=== PATIENT | male | born 1960 ===

== ENCOUNTER 2017-09-14 09:19 | Inpatient (IN) | payer OTHER ==
--- NOTE | 2017-09-13 20:47 | GHP ---
[f rep st] PREOP HISTORY AND PHYSICAL DATE OF ADMISSION: 09/14/2017 PROBLEM: Left hip arthritis. HISTORY OF PRESENT ILLNESS: The patient is a 56-year-old man admitted for a left hip Tripp hip resurfacing arthroplasty. I did his right BHR in August of 2011. He has had a very good result an d is very satisfied. His left hip has been painful since May of 2016. He is having daily pain and some night pain. He is using ibuprofen regularly. 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 The hip is very stiff after prolonged sitting. He is admitted for a left BH R. PAST MEDICAL HISTORY: Excellent general health. No history of heart disease, stents, DVT, hepatitis , sleep apnea or bleeding problems. CURRENT MEDICATIONS: Testosterone shot 1 time per week. ALLERGIES: Drug allergies: None. Metal allergies: None. Latex allergy: None. SOCIAL HISTORY: The patient is . He lives in [place], [place]. He does not smoke cigarettes . Occasionally drinks alcohol. He works in the construction business. He is . FAMILY HISTORY: Noncontributory. PHYSICAL EXAMINATION: VITAL SIGNS: Height 5 feet 10 inches. Weight 195 pounds. BMI 28. HEENT: E yes, conjunctivae and sclerae are clear. Pupils are round and reactive. Mouth: Good oral hygiene. No loose teeth. CHEST: Clear. HEART: Regular rhythm, no murmurs. EXTREMITIES: Pertinent findin gs are limited to his left hip. He has well-developed thigh and buttocks musculature. Full hip exte nsion and 90 degrees of flexion. External rotation 10 degrees. Internal rotation 0 degrees. Abduct ion 30 degrees. IMAGING: His films show severe degenerative arthritis of the left hip. His right BHR looks good. IMPRESSION ON ADMISSION: 1. Left hip advanced degenerative arthritis. He is prepared for a left hip Tripp hip resurfaci ng arthroplasty. 2. Six years status post right hip [place] hip resurfacing arthroplasty. The surgery has been described to him, including the risks, complications, expectations, and recovery time. I talked to him about the risk of femoral neck fracture, dislocation, sciatic nerve injury, a nd infection. We discussed extensively the risk of metal ions. He understands that he is relatively young for a hip arthroplasty and may require revision surgery in the future. All his questions have been answered, and he consents to surgery. /[id number]/MODL
[~2017-09-14 09:19] MED LIST: POVIDONE-IODINE 20 ML in SODIUM CL IRRIG SOLUTION 500 ML IRR ONE; ROPIVACAINE 0.2% 80 MG, EPINEPHrine 0.2 MG, KETOROLAC TROMETHAMINE 30 MG in SYRINGE 0 ML IU ONE; TRANEXAMIC ACID 1,900 MG in NS 100 ML IV ONE
[2017-09-14] MEDS ORDERED: FAMOTIDINE 20 MG TAB PO ONE (10:05)
[2017-09-14] MEDS ORDERED: ceFAZolin 2 GM/SWFI 2 GM/20 ML SYR IVP ONE (10:05)
[2017-09-14] MEDS ORDERED: GABAPENTIN 300 MG CAP PO ONE (10:05)
[2017-09-14] MEDS ORDERED: ceFAZolin 1 GM/5 ML SYR ONE (10:05)
[2017-09-14] MEDS ORDERED: ACETAMINOPHEN 325 MG TAB PO ONE (10:05)
[2017-09-14] MEDS ORDERED: DEXAMETHASONE 4 MG/ML VIAL IVP ONE (10:05)
[2017-09-14] MEDS ORDERED: LIDOCAINE 1% 2 ML INJ ID PRN (10:06)
[2017-09-14] MEDS ORDERED: LR 1,000 ML IV ONE (10:06)
--- NOTE | 2017-09-14 11:34 | PDHPUP ---
History & Physical Update H&P update statement: This history and physical update is based on an assessment of the patient which was completed after admission or registration (within 24 hours), but prior to the surgery/procedure. H&P update: H&P reviewed & patient examined, no change in patient's condition since H&P completed
[2017-09-14] MEDS ORDERED: BUPIVACAINE 0.5% 30 ML SDV ONE (12:37)
[2017-09-14] MEDS ORDERED: MIDAZOLAM 2 MG/2 ML VIAL ONE ×2 (12:39)
[2017-09-14] MEDS ORDERED: PROPOFOL/EMULSION 500 MG/50 ML BOTTLE IV ONE (12:41)
[2017-09-14] MEDS ORDERED: fentaNYL 100 MCG/2 ML INJ ONE (12:41)
--- NOTE | 2017-09-14 13:50 | PDANEPAE ---
ANE Past Medical History - Cardiovascular History Hx Hypertension: No Hx Arrhythmias: No Hx Chest Pain: No Hx Coronary Artery / Peripheral Vascular Disease: No Hx CHF / Valvular Disease: No Hx Palpitations: No - Pulmonary History Hx COPD: No Hx Asthma/Reactive Airway Disease: No Hx Recent Upper Respiratory Infection: No Hx Oxygen in Use at Home: No Hx Sleep Apnea: No Sleep Apnea Screening Result - Last Documented: Negative - Neurologic History Hx Cerebrovascular Accident: No Hx Seizures: No Hx Dementia: No - Endocrine History Hx Diabetes: No - Renal History Hx Renal Disorders: No - Liver History Hx Hepatic Disorders: No - Neurological & Psychiatric Hx Hx Neurological and Psychiatric Disorders: No - Cancer History Hx Cancer: No - Congenital Disorder History Hx Congenital Disorders: No - GI History Hx Gastrointestinal Disorders: No - Other Health History Other Health History: OA L hip - Chronic Pain History Chronic Pain: Yes (L hip) - Surgical History Prior Surgeries: R hip resurfacing 09-02-11 ANE Review of Systems Review of Systems: - Exercise capacity METS (RN): 6 METS ANE Patient History - Allergies Allergies/Adverse Reactions: No Known Allergies Allergy (Unverified 08/25/11 15:58) - Home Medications Home Medications: Ibuprofen [Motrin (*)] 200 mg PO DAILY PRN 09/06/17 [Last Taken 09/09/17] Testosterone IM [Testosterone 100mg/ml IM inj (*)] 0.8 ml IM TH 09/06/17 [Last Taken 09/10/17] - NPO status NPO Since - Liquids (Date): 09/14/17 NPO Since - Liquids (Time): 08:00 NPO Since - Solids (Date): 09/13/17 NPO Since - Solids (Time): 19:00 - Smoking Hx Smoking Status: Never smoked ANE Labs/Vital Signs - Vital Signs Blood Pressure: 131/87 Heart Rate: 73 Respiratory Rate: 14 O2 Sat (%): 96 Height: 177.8 cm Weight: 95.254 kg ANE Physical Exam - Airway Neck exam: FROM Mallampati Score: Class 1 Mouth exam: normal dental/mouth exam - Pulmonary Pulmonary: no respiratory distress - Cardiovascular Cardiovascular: regular rate and rhythym - ASA Status ASA Status: I ANE Anesthesia Plan Anesthesia Plan: spinal
[2017-09-14] MEDS ORDERED: PROPOFOL 200 MG/20 ML VIAL ONE (14:20)
[2017-09-14] MEDS ORDERED: ONDANSETRON DISINTEGRATING 4 MG TAB PO PRN (14:37)
[2017-09-14] MEDS ORDERED: MAGNESIUM HYDROXIDE 30 ML UDCUP PO PRN (14:37)
[2017-09-14] MEDS ORDERED: PROMETHAZINE HCL 25 MG SUPPR PR PRN (14:37)
[2017-09-14] MEDS ORDERED: DIPHENOXYLATE/ATROPINE LOMOTIL 1 TAB PO PRN (14:37)
[2017-09-14] MEDS ORDERED: NS 500 ML IV PRN (14:37)
[2017-09-14] MEDS ORDERED: LACTULOSE 20 GM/30 ML UDCUP PO PRN (14:37)
[2017-09-14] MEDS ORDERED: METOCLOPRAMIDE 10 MG/2 ML VIAL IVP PRN (14:37)
[2017-09-14] MEDS ORDERED: KETOROLAC 30 MG/1 ML SDV IVP PRN (14:37)
[2017-09-14] MEDS ORDERED: POLYETHYLENE GLYCOL 3350 17 GM PKT PO PRN (14:37)
[2017-09-14] MEDS ORDERED: PROMETHAZINE HCL 25 MG/ML INJ IVP PRN (14:37)
[2017-09-14] MEDS ORDERED: diphenhydrAMINE 25 MG CAP PO PRN (14:37)
[2017-09-14] MEDS ORDERED: TEMAZEPAM 15 MG CAP PO PRN (14:37)
[2017-09-14] MEDS ORDERED: ONDANSETRON 4 MG/2 ML VIAL IVP PRN ×2 (14:37→14:41)
[2017-09-14] MEDS ORDERED: BISACODYL 10 MG SUPP PR PRN (14:37)
[2017-09-14] MEDS ORDERED: traMADol 50 MG TAB PO PRN (14:37)
--- NOTE | 2017-09-14 14:40 | POSTANESTH ---
Post Anesthetic Evaluation Cardiovascular Status: Normal, Stable Respiratory Status: Normal, Stable Level of Consciousness/Mental Status: Can Participate in Eval Pain Control: Adequate, Prn Tx Ordered Nausea/Vomiting Control: Adequate, Prn Tx Ordered Complications Possibly Related to Anesthesia: None Noted
[2017-09-14] MEDS ORDERED: NALOXONE HCL 0.4 MG/ML INJ IVP PRN (14:41)
[2017-09-14] MEDS ORDERED: ALBUTEROL 3 ML DEYVIAL IH PRN (14:41)
[2017-09-14] MEDS ORDERED: fentaNYL 100 MCG/2 ML INJ IVP PRN (14:41)
[2017-09-14] MEDS ORDERED: LR 1,000 ML IV SCH (15:00)
[2017-09-14] MEDS: ACETAMINOPHEN 325 MG TAB PO SCH (17:40)
[2017-09-14] MEDS: oxyCODONE IR 5 MG TAB PO PRN ×2 (17:41→20:59)
--- NOTE | 2017-09-14 19:21 | GOP ---
[f rep st] OPERATIVE REPORT DATE OF OPERATION: 09/14/2017 SURGEON: Jersey Yuan MD PARLIAMENTARY ARCHIVIST: Kalin Washington [facility] Sean Mackay, LENA ANESTHESIA: Marcaine spinal and IV sedation, ANESTHESIOLOGIST: Allan Alatorre MD PREOPERATIVE DIAGNOSIS: Left hip degenerative arthritis. POSTOPERATIVE DIAGNOSIS: Left hip degenerative arthritis. PROCEDURE PERFORMED: Left hip Tripp hip resurfacing arthroplasty. FINDINGS: ESTIMATED BLOOD LOSS: 400 mL. I used the [place] hip resurfacing system. The acetabular component was 60 mm in diameter and pre ss-fit. The femoral head was 54 mm and cemented. He was awakened from anesthesia and rolled to the supine position on his [facility]. A long-leg compressive stocking was and SCD were applied to the operative leg. He wore a stocking and SCD on the opposite leg during the procedure. An abductio n pillow was placed between his knees. He was awakened from anesthesia, transferred to his [facility] and taken to PACU in satisfactory condition. There were no recognized intraoperative complica tions. The sponge and needle counts were correct on 2 occasions. Kalin Washington and Juan Mackay acted as surgical assistants. Their assistance was a medical necess ity for the safe completion of the procedure. DESCRIPTION OF PROCEDURE: The patient was given 2 g of IV Ancef within 60 minutes of surgery. He al so received tranexamic acid at a dose of 20 mg/kg. He was placed on the operating room table and giv en spinal anesthesia with Marcaine by Dr. Alatorre. He was then placed supine and given IV sedation. A Murillo catheter was not used. He wore a compressive stocking and SCD on the nonoperative leg. He was rolled to the right lateral decubitus position. An axillary roll was used, and all pressure poi nts were carefully padded. The position was secured with the pegboard table attachment. I was caref ul to lock the pelvis in a vertical position. His perineum was isolated with plastic adhesive drapes . The left hip and left lower extremity were prepped with ChloraPrep. They were draped free using s terile sheets, stockinette, and Ioban plastic drape. The World Health Organization time-out was performed to verify the correct patient identity and the c orrect surgical side and site. The [place] time-out was also performed. I made a 7-inch straight oblique posterolateral hip skin incision. The subcutaneous tissues were sha rply divided, and hemostasis was obtained using electrocautery. The fascia toñito was identified and s plit along the axis of its fibers. I curved posteriorly and proximally, and split the fascia of glut eus rodriguez and bluntly split the muscle fibers in line with their orientation. His sciatic nerve wa s identified and protected throughout the procedure. The Charnley self-retaining retractor was inser sammie. The external rotators and the posterior hip capsule were divided as separate layers at the base of the femoral neck, tagged, and reflected posteriorly. The gluteus rodriguez tendon was divided and tagged in order to improve exposure and release tension on the sciatic nerve. His hip was dislocated posteriorly. I used a sizing gauge to check the diameter of the neck, and concluded that 54 mm was the proper head size. I performed a complete circumferential capsulotomy. I was able to retract the femoral head anteriorly and superiorly, and hold it out of place with appropriate retractors. The r emnant of his damaged labrum was excised. His acetabulum was reamed sequentially up to 60 mm. I tim ected the Tripp monoblock porous-coated acetabular component with an outside diameter of 60 mm. This was firmly impacted and was a very tight fit. I was careful to determine proper inclination an d anteversion. I used the transverse acetabular ligament and other acetabular bony landmarks to help me properly orient the cup. Osteophytes were removed with an osteotome and rongeur. I was careful to leave a lip of bone and capsule extending beyond the anterior-inferior lip of the metal cup. I then returned to preparation of the femoral head. Using appropriate jigs and guides, I inserted a guide pin into the femoral head and neck. I was careful to position it in such a way that there woul d be no notching of the neck. The large sterile metal goniometer was used to check the neck shaft an gle. I reamed over the guide pin and inserted a reaming guide. I then used the cylindrical reamer d own to the head-neck junction. This was followed by the flat reamer and the chamfer reamer. The hea d was sized for 54 mm. There was no impingement or damage to the neck. He had some moderate-sized a nterior neck osteophytes, which I trimmed with a rongeur. I drilled a small hole in the lesser troch anter and inserted a suction cannula to create negative pressure in the medullary canal. Small holes were drilled on the flattened chamfered surfaces of the prepared head for cement anchors. The head was thoroughly cleaned with the pulsating lavage and carefully dried. I used the CarboJet device to blow dry the cancellous surfaces. A single batch of Simplex cement with tobramycin was mixed. At ab out 50 seconds, I poured the cement into the head component, inserted it onto the prepared femoral he ad, and impacted it into place. Excess cement was removed before it hardened. The acetabulum was irrigated, cleaned, and inspected, the hip was reduced. Stability and range of mo tion were checked. I placed my finger along the anterior aspect of the acetabular component and flex ed the hip to 110 degrees. There was no anterior impingement. The suction cannula of the lesser tro chanter was removed. The wound was thoroughly irrigated with a dilute Betadine solution. 40 mL of t he joint anesthetic cocktail was injected into the capsule, the deep musculature, and the subcutaneou s tissues along the skin edges. His sciatic nerve was reinspected and looked unharmed. The external rotators and the posterior hip c apsule were repaired in separate layers with #2 FiberWire sutures through drill holes in the greater trochanter. This provided a strong posterior capsular and external rotator repair. The gluteus maxi mus tendon was repaired with two #2 [id number] FiberWire sutures. The fascia toñito was repaired first with 2 interrupted [id number] #2 FiberWire sutures followed by a running #2 barbed Ethicon Stratafix PDO suture. Subcutaneous tissues were closed with a running 0 barbed Ethicon Stratafix Mo noderm suture. The skin was closed with a running 3-0 barbed Ethicon Stratafix Monoderm subcuticular suture. The skin edges were reapproximated and sealed with Dermabond glue. The wound was covered w ith a large sterile Mepilex surgical dressing. Copy requested to: EARL Bernstein /[id number]/MODL
[2017-09-14] MEDS: ceFAZolin 2 GM/SWFI 2 GM/20 ML SYR IVP SCH (20:57)
[2017-09-14] MEDS: SENNOSIDES/DOCUSATE SODIUM TAB PO SCH (20:57)
[2017-09-14] MEDS: TRANEXAMIC ACID 650 MG TAB PO SCH (20:58)
[2017-09-14] MEDS: FAMOTIDINE 20 MG TAB PO SCH (20:59)
[2017-09-14] MEDS ORDERED: ceFAZolin 2 GM/DEXTROSE 100 ML IV SCH (22:00)
[2017-09-14] MEDS: ASPIRIN EC 325 MG TAB PO SCH (22:16)
[2017-09-14] MEDS: CYCLOBENZAPRINE 10 MG TAB PO PRN (22:18)
[2017-09-15] MEDS: ACETAMINOPHEN 325 MG TAB PO SCH ×2 (00:58→05:25)
[2017-09-15] MEDS: oxyCODONE IR 5 MG TAB PO PRN ×3 (00:58→08:15)
[2017-09-15 05:03] LABS: HEMOGLOBIN 14.4 g/dL (13.7-17.5)
[2017-09-15] MEDS: CYCLOBENZAPRINE 10 MG TAB PO PRN (05:24)
[2017-09-15] MEDS: ceFAZolin 2 GM/SWFI 2 GM/20 ML SYR IVP SCH (05:25)
[2017-09-15] MEDS: TRANEXAMIC ACID 650 MG TAB PO SCH (05:25)
[2017-09-15 07:57] VITALS: BP 102/68; PULSE 70; RESP 16; TEMP 98.1; O2SAT 93
[2017-09-15] MEDS: SENNOSIDES/DOCUSATE SODIUM TAB PO SCH (08:15)
[2017-09-15] MEDS: ASPIRIN EC 325 MG TAB PO SCH (08:15)
[2017-09-15] MEDS: FAMOTIDINE 20 MG TAB PO SCH (08:15)
[2017-09-15] MEDS ORDERED: FERROUS SULFATE 140 MG TAB.ER PO SCH (09:00)
--- NOTE | 2017-09-15 09:49 | SOAPPROG ---
SOAP Progress Note Assessment/Plan: Assessment: Afebrile. Awake and alert. He has been up and walking in the rudd. His dressing is dry. Sciatic nerve intact. Postop films look excellent. Postop H&H are good. Plan: Physical therapy today for walking and stairs. Discharged later today. 09/15/17 09:48 Objective: Vital Signs Temp Pulse Resp BP Pulse Ox 36.7 C 70 16 102/68 93 09/15/17 07:55 09/15/17 07:55 09/15/17 07:55 09/15/17 07:55 09/15/17 07:55 Laboratory Results 09/15/17 04:39 09/14/17 09/15/17 09/16/17 05:59 05:59 05:59 Intake Total 2390 Output Total 550 150 Balance 1840 -150 ICD10 Worksheet Patient Problems: Problems Problem Status Onset Osteoarthritis of left knee Acute
--- NOTE | 2017-09-15 11:00 | ASDISCHSUM ---
Discharge Information Plan Status:Home with No Needs Medically Cleared to Leave: Discharge Date:09/15/2017 10:39 AM CM D/C Disposition:Home, Routine, Self-Care ADT D/C Disposition:Home, Routine, Self-Care Projected Discharge Date:09/15/2017 10:39 AM Transportation at D/C: Discharge Delay Reason: Follow-Up Date:09/15/2017 10:39 AM Discharge Slot: Final Diagnosis: Placement Information Patient Contact Information Contact Name:TARA Relationship: Address:[address] [place] [address] Work Phone: City:[place] Alternate Phone: [facility]/Zip Code:[place] [address] Email: Financial Information Financial Class:HMO and PPO Plans Primary Plan Desc:H[employer] [employer] Primary Plan Number:[id number] Secondary Plan Desc: Secondary Plan Number: Assessment Information [facility] CM Progress Note CM Note CM Note Notes: Pt medically stable for d/c, no CM d/c needs identified. Date Signed: 09/15/2017 11:00 AM Electronically Signed By:AVA Mcrae Intervention Information
--- NOTE | 2017-09-15 15:12 | GDS ---
[f rep st] DISCHARGE SUMMARY ADMISSION DIAGNOSIS: Left hip severe degenerative arthritis. DISCHARGE DIAGNOSIS: Left hip severe degenerative arthritis. OPERATION PERFORMED: 09/14/2017, a left hip [place] hip resurfacing arthroplasty. POSTOPERATIVE COMPLICATIONS: None. CONDITION ON DISCHARGE: Improved. DESCRIPTION OF HOSPITAL COURSE: The patient was admitted to the hospital on the morning of surgery. The same day, under a combination of Marcaine, spinal, and IV sedation, he underwent a left hip [place] hip resurfacing arthroplasty. Postoperatively, was treated with multimodal DVT prophylaxis, i ncluding aspirin. On the first postoperative day, his hemoglobin and hematocrit were 14.4 and 42.0. He was seen by Physical Therapy and made excellent progress with ambulation and stairs. DISPOSITION: The patient is discharged to his home in [place], [place]. He will stay in a local [facility] and see me in the office tomorrow. He may progress to full weightbearing on the left as t olerated. Use an abduction pillow in bed for 3 weeks. NATALIE stockings for 1 week. He has prescriptio ns for tramadol and oxycodone for pain control. Continue aspirin 325 mg p.o. daily for 21 days. Copy requested to: Dr Nickolas Nixont [place] /[id number]/MODL
== END 2017-09-15 10:39 | disposition home or self-care (01) | DRG 470 ==
LOC: F3N 09:52
PROVIDERS: ADMIT Orthopaedic Surgery; ATTEND Orthopaedic Surgery
PROC: 0SUB0BZ Supplement Left Hip Joint with Resurfacing Device, Open Approach (ICD-10-PCS; principal; 2017-09-14 11:30)
DX: M16.12 Unilateral primary osteoarthritis, left hip (principal); Z96.641 Presence of right artificial hip joint
CPT/HCPCS: 97161-GP; 97165-GO; C1713; J0171; J0690; J1100; J1885; J2250; J2704; J2795; J3010